=== PATIENT | female | born 1990 | race Caucasian/White ===

== ENCOUNTER 2018-01-31 21:00 | Inpatient (IN) | payer OTHER, SELFPAY ==
[2018-01-31 20:00] VITALS: BMI 37.1
[2018-01-31 20:57] LABS: ROM Internal Control Test YES-OK TO RESULT pt. (Internal QC)
[2018-01-31 20:59] LABS: ROM Patient Test POSITIVE (Negative)
[2018-01-31] MEDS: Lactated Ringers 1,000 ML 50 ML IV (21:30)
[2018-01-31 21:42] LABS: Hematocrit 37.6 % (37-47); Hemoglobin 12.8 g/dl (12.0-15.0); Mean Corpuscular Hgb 30.7 pg (27.0-32.0); Mean Corpuscular Volume 90.2 fL (81-99); Mean Platelet Vol. 11.2 fl (6.2-12.0); Platelet Count 191 K/mm3 (150-450); RBC Distribution Width CV 12.7 % (11.6-14.6); Red Blood Count 4.17 M/mm3 (4.2-5.4); Scan Indicated on CBC? Y/N NO; White Blood Count 13.4 K/mm3 (4.4-11.0)
[2018-01-31] MEDS: miSOPROStol 25 MCG TABLET PO (21:49)
[2018-02-01] MEDS: Acetaminophen 325 MG Tablet PO (00:16)
[2018-02-01] MEDS: Lactated Ringers 1,000 ML 50 ML IV ×2 (02:26→06:45)
[2018-02-01] MEDS: fentaNYL-bupivacaine (epidural) 100 ML BAG EPIDURAL (03:10)
[2018-02-01] MEDS: Oxytocin 30 units/NS 500 ml 30 UNITS/500 ML IV.SOLN IV (03:10)
[2018-02-01] MEDS: Ondansetron 4 MG/2 ML Vial IV (05:58)
--- NOTE | 2018-02-01 07:08 | PCM.HP.OB ---
- Problem List (1) Premature rupture of membranes Status: Acute History Date of Admission: 01/31/18 Final ANASTASIIA: 01/28/18 Final ANASTASIIA Source: LMP Gestational age: 40 Weeks and 4 Days History of this : This is a 27 year-old, G [1], P [0], at 40 weeks 3d gestational age by LMP. Presented to L&D with ROM for approximately 6 hours prior to hospital arrival. [place] a pop and small amount of fluid leakage. Throughout the day contractions began to increase in frequency every 5-8 minutes and intensity increased. Upon arrival ROM plus positive. Given Cytotec orally and progressed to 3-4 centimeters. Then started on Pitocin for active management. History of depression, depression during with counseling Rh negative Smoker, quit at beginning of . Surgical History: Surgical History (Last Updated 09/20/17 @ 09:21 by Christal Berg) History of tonsillectomy and adenoidectomy Z98.890 [facility] Allergy (Verified 01/31/18 20:33) Unknown shellfish derived Allergy (Verified 01/31/18 20:33) Swelling Home Medications: Home Medications acetaminophen 325 mg tablet 325 mg PO ONCE PRN 09/20/17 vitamin,calcium,awrasexi-prek-frhhz acid tablet 1 tab PO QDAY 09/20/17 Smoking Status: Former smoker Alcohol: None Number of Fetus(es): 1 Heart Tracin, moderate variability, accels, no decels, Category 1 FHT TOCO Analysis: q2-3 minutes, lasting 60-90 seconds, palpating moderate to strong. Pitocin at 1mu History Past Pregnancies: Past Pregnancies Delivery Date Name GA/Weeks Outcome Route Weight Gender Labor Length Anesthesia Delivery Location Provider FOB Labs: GBS negative Rubella Immune HBsAG negative HIV negative RPR negative O negative, antibody screen negative urine tox screen negative GC/CT negative Expected Delivery Method: Spontaneous Vaginal Describe any other labor & delivery plans:: Epidural for pain management Physical Exam General: Alert, Oriented x3, No apparent distress Cardiovascular: Regular rate, Regular Rhythm, No murmurs Lungs: Clear to auscultation, No rhonchi, No wheeze Extremities:: No edema Estimated gestational size: Appropriate for gestational size Presentation: Cephalic Cervix Dilation (cm): 8 Station: 0 Effacement (%): 90 Assessment/Plan All Active Problems Premature rupture of membranes (Acute) Sinusitis, acute (Acute) This is a 27 year-old, G [1], P [0], at 40 weeks gestational age. A:PROM Active Labor with Pitocin augmentation Category 1 FHT P: 1) Admit to L&D with routine orders 2) Epidural for pain management 3) Anticipate 4) for collaborative physician. Notified of patient status.
--- NOTE | 2018-02-01 07:19 | HP.PCM_ITS ---
- Problem List (1) Premature rupture of membranes Status: Acute History Date of Admission: 01/31/18 Final ANASTASIIA: 01/28/18 Final ANASTASIIA Source: LMP Gestational age: 40 Weeks and 4 Days History of this : This is a 27 year-old, G [1], P [0], at 40 weeks 3d gestational age by LMP. Presented to L&D with ROM for approximately 6 hours prior to hospital arrival. [place] a pop and small amount of fluid leakage. Throughout the day contractions began to increase in frequency every 5-8 minutes and intensity increased. Upon arrival ROM plus positive. Given Cytotec orally and progressed to 3-4 centimeters. Then started on Pitocin for active management. History of depression, depression during with counseling Rh negative Smoker, quit at beginning of . Surgical History: Surgical History (Last Updated 09/20/17 @ 09:21 by Christal Berg) History of tonsillectomy and adenoidectomy Z98.890 Allergies cefaclor [From [facility]] Allergy (Verified 01/31/18 20:33) Unknown shellfish derived Allergy (Verified 01/31/18 20:33) Swelling Home Medications: Home Medications acetaminophen 325 mg tablet 325 mg PO ONCE PRN 09/20/17 vitamin,calcium,npugodxr-canl-gorqi acid tablet 1 tab PO QDAY 09/20/17 Smoking Status: Former smoker Alcohol: None Number of Fetus(es): 1 Heart Tracin, moderate variability, accels, no decels, Category 1 FHT TOCO Analysis: q2-3 minutes, lasting 60-90 seconds, palpating moderate to strong. Pitocin at 1mu History Past Pregnancies: Past Pregnancies Delivery Date Name GA/Weeks Outcome Route Weight Gender Labor Length Anesthesia Delivery Location Provider FOB Labs: GBS negative Rubella Immune HBsAG negative HIV negative RPR negative O negative, antibody screen negative urine tox screen negative GC/CT negative Expected Delivery Method: Spontaneous Vaginal Describe any other labor & delivery plans:: Epidural for pain management Physical Exam General: Alert, Oriented x3, No apparent distress Cardiovascular: Regular rate, Regular Rhythm, No murmurs Lungs: Clear to auscultation, No rhonchi, No wheeze Extremities:: No edema Estimated gestational size: Appropriate for gestational size Presentation: Cephalic Cervix Dilation (cm): 8 Station: 0 Effacement (%): 90 Assessment/Plan All Active Problems Premature rupture of membranes (Acute) Sinusitis, acute (Acute) This is a 27 year-old, G [1], P [0], at 40 weeks gestational age. A:PROM Active Labor with Pitocin augmentation Category 1 FHT P: 1) Admit to L&D with routine orders 2) Epidural for pain management 3) Anticipate 4) for collaborative physician. Notified of patient status.
[2018-02-01] MEDS: Oxytocin 30 units/NS 500 ml 30 UNITS/500 ML IV.SOLN 334 UNITS IV (12:00)
--- NOTE | 2018-02-01 12:19 | PCM.OB.VAG ---
Vaginal Delivery Maternal Presentation: Spontaneous Rupture of Membranes Method of Induction: Pitocin Amniotic Membrane Rupture Type: Spontaneous at home Amniotic Fluid Description: Clear Final ANASTASIIA: 01/28/18 Gestational age: 40 Weeks and 4 Days Date of Procedure: 02/01/18 Pre-Operative Diagnosis: SROM Post-Operative Diagnosis: SROM Surgery/ Procedure Performed: Spontaneous Vaginal Delivery Type of Anesthesia: Epidural Description of Procedure: Patient prepped & draped when c/c/+2. She pushed & delivered head. Gentle traction placed on head to allow delivery of anterior & posterior shoulders. No excess traction placed on head. Body delivered & infant placed on maternal abdomen. 3VC clamped & cut after 1 minute delay. Placenta delivered with gentle traction. Good uterine tone obtained. Presentation: ABILIO Placental Delivery Description: Expressed Placenta Disposition: [facility] Cord Vessel Description: 3 Vessels Cord Entanglement: None Estimated Blood Loss: 250ml A gender: Female (1 minute): 8 (5 minute): 9 Episiotomy Description: None Laceration: 2nd degree - perineal - repaired with 3-0 vicryl Medications given after delivery: IV Pitocin Complications: None
[2018-02-01] MEDS: Oxytocin 30 units/NS 500 ml 30 UNITS/500 ML IV.SOLN 167 UNITS IV (12:30)
[2018-02-01] MEDS: 0.9% Saline Lock 10 ML Syringe IV (14:16)
[2018-02-01] MEDS: Ibuprofen 600 MG Tablet PO ×2 (15:38→22:41)
[2018-02-01 15:40] VITALS: BP 135/81; PULSE 110; RESP 18; TEMP 36.8
[2018-02-01 19:36] VITALS: BP 124/70; PULSE 114; RESP 16; TEMP 37.1
[2018-02-02] VITALS: BP 124/69; PULSE 103; RESP 16; TEMP 36.6
[2018-02-02] MEDS: Acetaminophen 500 MG Tablet 1000 MG PO ×3 (03:07→20:50)
[2018-02-02 04:15] VITALS: BP 123/65; PULSE 96; RESP 18; TEMP 36.4
[2018-02-02] MEDS: Ibuprofen 600 MG Tablet PO ×3 (08:22→23:00)
--- NOTE | 2018-02-02 08:40 | DCINST_ITS ---
Discharge Diet: No Restrictions Discharge Activity: Return to Normal Activity, May not drive while taking narcotic pain medications., May Shower May resume sexual activity in: 4-6 weeks Additional Activity Instructions:: Nothing in the vagina for 4-6 weeks. You may return to work/school in 6 weeks. Call your doctor if your incision/area has: Continuous Slow Oozing, Sudden Increased Bleeding, Increased Pain/ Swelling, Increased Redness, Foul Smelling Discharge Call your doctor if you observe: Fever of 101 or Higher, Inability to urinate, Inability to have a bowel movement, Using more than one pad per hour, Calf discomfort, Uncontrolled pain Additional Instructions: If you experience any of the following, contact your healthcare provider. * Bleeding that soaks a pad every hour for 2 hours * Fever 100.4 or higher * Unrelieved incision or abdominal pain * Swelling, redness, discharge or bleeding from your incision or episiotomy site * Your incision begins to separate * Problems urinating (including inability to urinate or burning while urinating) . * Visual changes * Severe headache * Flu-like symptoms * Pain or redness in one of both of your breasts * Pain, warmth, tenderness or swelling in your legs, especially the calf area * Frequent nausea and vomiting * Symptoms of depression or anxiety If you experience any of the following, call 911 or go to the nearest Emergency Room. * Chest pain * Problems breathing * Seizure activity * Partial or complete paralysis of a body part, slurred speech, weakness or drooping of the face, or a sudden inability to walk or hold your balance Allergies/Adverse Reactions: Allergies cefaclor [From Ceclor] Allergy (Verified 01/31/18 20:33) Unknown shellfish derived Allergy (Verified 01/31/18 20:33) Swelling Medications to take at Discharge acetaminophen 325 mg tablet 325 mg PO ONCE PRN 09/20/17 vitamin,calcium,mxlkhaae-zyki-jvnkx acid tablet 1 tab PO QDAY 09/20/17 When: Call to make an appointment with your doctor in 6 weeks. If you had elevated Blood Pressure or 4th degree laceration you will need to be seen in 2 weeks. Test Results: Test results from this visit will be discussed in further detail at your follow- up appointment, if applicable. Proposed Discharge Date: 02/03/18
--- NOTE | 2018-02-02 08:40 | PCM.PN.OB ---
Patient Problems: Active and Suspected Problems Premature rupture of membranes (Acute) Subjective: Patient sitting up in bed at this time. Patient denies any complaints or concerns at this time. Patient reports that baby is latching well with assistance of consultants. Patient denies difficulty with ambulation or urination. Reports bleeding is tapering down. Objective: Nipples without cracks or blisters, no erythema noted bilaterally Abdomen NT x 4 quadrants, FF midline 2FB below umbilicus +2/4 reflexes in LE, trace non-pitting edema in LE Perineum well approximated, small rubra lochia - Physical Exam General: Alert, Oriented x3, Cooperative HEENT: Atraumatic, Normocephalic Neck: Supple Lungs: Normal air movement Cardiovascular: Regular rate, No murmurs Abdomen: Soft, Non Tender Extremities: No edema, Capillary Refill Less than 3 Seconds Skin: No rashes, No breakdown Musculoskeletal: No Tenderness to Palpation of Joints or Extremities Neurological: Cranial nerves II-XII grossly intact, Deep Tendon Reflexes 2+/4 and Symmetrical Psych/Mental Status: Normal Affect, Appropriate Vital Signs Temp Pulse Resp BP 97.6 F L 96 18 123/65 H 02/02/18 04:15 02/02/18 04:15 02/02/18 04:15 02/02/18 04:15 Oxygen Delivery Method Room Air Weight: 203 lb 0.732 oz Body Mass Index (BMI) 37.1 Intake and Output for Last 24 Hours 01/31/18 02/01/18 02/02/18 23:59 23:59 23:59 Intake Total 2924 / 2924 Output Total 1800 / 1800 Balance 1124 / 1124 Medical Necessity - Tobacco Use Smoking Status: Former smoker Assessment/Plan All Active Problems Premature rupture of membranes (Acute) Sinusitis, acute (Acute) A: 27 y/o s/p of viable girl baby, PPD #1, Normal PP course P: 1) Continue present orders at this time, consultation visits today 2) Anticipate discharge to home tomorrow - will place Nexplanon tomorrow Nely PADGETT
[2018-02-02 08:42] VITALS: BP 131/79; PULSE 79; RESP 16; TEMP 36.3
[2018-02-02 12:06] VITALS: BP 122/63; PULSE 94; RESP 16; TEMP 36.5; O2SAT 98
--- NOTE | 2018-02-02 14:51 | CASEMGMT ---
Social Work Note Labor and Delivery Unit Consult for maternal history of marijuana use, depression, and anxiety. Chart reviewed. Presented to patient's room for assessment. Patient working on baby. Patient reports about to call nurse for assist to latching baby to other breast, so maybe for this bond underwriter to return a bit later. Plan: Try to meet with patient at a later time. -LUCAS Inman, HANDS ASSEMBLER
[2018-02-02 16:00] VITALS: BP 132/73; PULSE 90; RESP 18; TEMP 37.3
--- NOTE | 2018-02-02 16:33 | CASEMGMT ---
Social Work Assessment Labor and Delivery Unit Date of Referral: 02/01/2018 Time of Referral: 1509 Referred By: Dr. Boo Date of Intervention: 02/02/18 Time of Intervention: 1615 Reason for Referral: Maternal history of depression, anxiety, and marijuana use History obtained from: Medical record and patient/mother of baby (MOB) Faye Naik. Household composition: MOB, FOB, and the familys dog. Intend to take baby to this home. Patient's parent/guardian status: MOB reports she and FOB Herbie Naik have been for almost 2 years. MOB denies any form of abuse in relationship. Medical History: MBO is G1, P0 to 1 after delivering infant. care good, starting at 8 weeks gestation. Educational Status: MOB has some college education. No problem reading, writing, or with learning comprehension. Financial Status: MOB was working at a local [employer] but uncertain if will return there after discharge. HELEN works in [place] at [employer], first shift. Supplies: MOB reports to have needed supplies for baby including a bassinet, car seat, clothing, diapers, wipes, and plans to breast feed. Childcare/Caregiver(s): MOB plans to be off of work until July. Transportation: Reports to have reliable transportation. Programs/Agencies Involved: No agency involvement. MOB reports to feel to be over income for [employer]. MOB declines referral to [facility] [facility] did go [facility] one time during this , not currently attending. Behavioral Health Issues: MOB reports history of depression and anxiety prior to and then increase of symptoms of anxiety during . MOB reports has been on medication in the past but prefers medication at this point to be the last resort. MOB reports would prefer counseling over medication. MOB denies any history of suicidal ideation, plan, intent, or attempt. MOB reports to feel happy right now, on a scale of 1-10 with 10 being the happiest to be an 9 but in the last two weeks a 6 as MOB was anxious about delivering. MOB reports current anxiety is a 3 on the same scale with 1 being low anxiety and 10 being high anxiety. MOB reports did use marijuana in the past but stopped upon knowledge of . MOB reports also quit smoking tobacco. MOB reports social alcohol use outside of . Denies other illicit drug use. MOB with negative drug screen on 12-5-17. Infant meconium is pending. Family/Social Stressors: No reported stressors at this time. MOB does have history of depression and anxiety, not in current treatment though reports mood to be good at this time. MOB repots Vitamin D supplements have really helped MOBs mood. Support Systems: MOB reports to have both practical and emotional support from FOB, MOBs mother and sister. There are other family members around that are helpful as well. MOB reports FOB will be off for a week to help with transition home. And then the following week MOBs mom will be available. Depression/Shaken Baby/Safe Sleeping: MOB aware of safe sleeping and shaken baby. MOB educated to depression and anxiety, risk factors present, and importance of seeking out help and support if needed. ASSESSMENT: MOB pleasant, cooperative, friendly. MOB holding baby for entirety of social work visit. MOB stroking babys back, smiling at baby, and gazing at baby. MOB tearful at one point, when discussing that baby Iris is worth the cessation of smoking tobacco and marijuana. MOB reports to be happy to have the baby and to feel love and a connection. MOB reports to have adequate support at home, to have supplies, and intent to abstain from marijuana usage at this time. Educated MOB that smoking marijuana and is contraindicated, in case MOB does have a change of mind in the future. MOB reports if depression and anxiety symptoms arise would be willing to go to counseling and that the one visit MOB had at [facility] this as helpful. MOB accepting of [facility] resource packet, depression packet including online support resources, as well as local counselling options including [facility] program. MOB interested in the online support group for mothers. PLAN: MOB and baby to home when ready for discharge. Resources in place. Will monitor for meconium drug screen results but otherwise, no other services requested or indicated. -EULA Inman, POCKET CREASER
[2018-02-02 20:10] VITALS: BP 133/72; PULSE 78; RESP 18; TEMP 36.6; O2SAT 99
[2018-02-03 02:25] VITALS: BP 136/75; PULSE 83; RESP 18; TEMP 36.2
[2018-02-03 07:30] VITALS: BP 128/75; PULSE 85; RESP 16; TEMP 37.5
[2018-02-03] MEDS: Ibuprofen 600 MG Tablet PO (07:39)
[2018-02-03] MEDS: Senna/Docusate Sodium 1 Tablet PO (07:44)
[2018-02-03] MEDS: Etonogestrel 68 MG IMPLANT SQ (08:35)
--- NOTE | 2018-02-03 08:53 | PCM.PN.OB ---
Patient Problems: Active and Suspected Problems Premature rupture of membranes (Acute) Subjective: Patient sitting up in bed, reporting feelings of extreme tiredness and fatigue. Patient reports was up much of night and was fussy. Patient reports very supportive. Patient notes no physical complaints or issues, reports that bleeding continues to decrease. Denies issues with urination and ambulation. Desires discharge to home today Objective: Nipples without cracks or blisters Abdomen NT x 4 quadrants, FF midline 2FB below umbilicus +2/4 reflexes in LE, no edema noted Perineum well-approximated, scant rubra lochia - Physical Exam General: Alert, Oriented x3, Cooperative HEENT: Atraumatic, Normocephalic Neck: Supple Lungs: Normal air movement Cardiovascular: Regular rate, No murmurs Abdomen: Soft, Non Tender Extremities: No edema, Capillary Refill Less than 3 Seconds Skin: No rashes, No breakdown Musculoskeletal: No Tenderness to Palpation of Joints or Extremities Neurological: Cranial nerves II-XII grossly intact, Deep Tendon Reflexes 2+/4 and Symmetrical Psych/Mental Status: Normal Affect, Appropriate Vital Signs Temp Pulse Resp BP Pulse Ox 99.5 F H 85 16 128/75 H 99 02/03/18 07:30 02/03/18 07:30 02/03/18 07:30 02/03/18 07:30 02/02/18 20:10 Oxygen Delivery Method Room Air Weight: 203 lb 0.732 oz Body Mass Index (BMI) 37.1 Intake and Output for Last 24 Hours 02/01/18 02/02/18 02/03/18 23:59 23:59 23:59 Intake Total 2924 / 2924 Output Total 1800 / 1800 Balance 1124 / 1124 Medical Necessity - Tobacco Use Smoking Status: Former smoker Assessment/Plan All Active Problems Premature rupture of membranes (Acute) Sinusitis, acute (Acute) 27 y/o s/p , Normal PP Course, PPD #2 P: 1) Discharge to home pending discharge 2) Anticipatory PP health teaching done 3) RTC at 6 weeks to [facility] for f/u visit Nely PADGETT
== END 2018-02-03 11:20 | disposition home or self-care (01) | DRG 775 ==
LOC: WPOUT 21:07
PROVIDERS: Admitting Provider Obstetrics & Gynecology; Visit Provider Obstetrics & Gynecology
DX: O42.02 Full-term premature rupture of membranes, onset of labor within 24 hours of rupture (principal); Z3A.40 40 weeks gestation of pregnancy; Z37.0 Single live birth; O70.1 Second degree perineal laceration during delivery; O99.334 Smoking (tobacco) complicating childbirth
CPT/HCPCS: 59025; 59050; 84112; 85027; 86850; 86900; 99218; J7120; A4216; G0378; J2405

== ENCOUNTER 2018-02-05 10:50 | Outpatient (CLI) | payer OTHER, SELFPAY | END 2018-02-05 11:50 | disposition home or self-care (01) | LOC: WPOUT 10:53 → WP 10:54 | PROVIDERS: Visit Provider Obstetrics & Gynecology | DX: O92.79 Other disorders of lactation (principal) | CPT/HCPCS: 96152 ==

== ENCOUNTER 2018-02-11 14:05 | Outpatient (CLI) | payer OTHER, SELFPAY | END 2018-02-11 15:00 | disposition home or self-care (01) | LOC: WPOUT 14:10 → WP 14:11 | PROVIDERS: Visit Provider Obstetrics & Gynecology | DX: O92.79 Other disorders of lactation (principal) | CPT/HCPCS: 96152 ==

== ENCOUNTER → 2020-01-30 | Outpatient (CLI) | payer OTHER, SELFPAY ==
[2020-01-29 17:21] VITALS: BMI 25.7
== END | disposition home or self-care (01) ==
LOC: LABSPEC 01-31 13:54
PROVIDERS: Referring Provider Physician Assistant; Visit Provider Physician Assistant
DX: J02.9 Acute pharyngitis, unspecified (principal); J34.89 Other specified disorders of nose and nasal sinuses; Z20.828 Contact with and (suspected) exposure to other viral communicable diseases
CPT/HCPCS: 87635; G2023; U0003

== ENCOUNTER 2021-11-09 18:05 | Inpatient (IN) | payer BC, SELFPAY ==
[2021-11-09] VITALS (16 sets, daily range): BP systolic 126–143; BP diastolic 58–92; PULSE 72–86; RESP 16; TEMP 36.1–36.8; O2SAT 95–99; BMI 37.2
--- NOTE | 2021-11-09 16:08 | OB.TRI.NOTE ---
HPI - General General Date of Admission: 11/09/21 HPI Narrative MELANIE MAGUIRE, is a at 31 F who presents to triage with increased blood pressure at home, swelling and overall malaise. She denies headache, vision changes or RUQ pain. No history of preeclampsia or elevated pressures throughout the . She is scheduled for primary section this week for breech presentation. 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 varicosities Home Medications escitalopram oxalate 10 mg tablet 10 mg PO DAILY 09/20/19 [History Last Taken 11/08/21 21:00] buspirone 5 mg tablet 2 tab PO DAILY 01/29/20 [History Last Taken 11/08/21 21:00] clindamycin HCl 300 mg capsule 300 mg PO TID #30 cap 06/04/21 [Rx Last Taken Unknown] vit 64-yhta-npnsg-dha [ + DHA] 1 pkg PO DAILY 11/09/21 [History Last Taken 11/08/21 21:00] Allergy/AdvReac Type Severity Reaction Status Date / Time cefaclor [From [facility]] Allergy Unknown Verified 11/09/21 16:13 shellfish derived Allergy Swelling Verified 11/09/21 16:13 Surgical History History of tonsillectomy and adenoidectomy Social History Smoking Status: Former smoker alcohol intake: former History Elective abortions Hx Para 1 Spontaneous abortions Hx # Term Pregnancies Ectopic pregnancies Hx # Pregnancies Multiple births # of living children ROS Eyes Eyes: Denies blurry vision Cardiovascular Cardiovascular: Reports none; Denies chest pain at rest, chest pain with activity or dizziness Respiratory/Chest Respiratory/Chest: Denies cough or dyspnea Gastrointestinal Gastrointestinal: Reports none and other; Denies diarrhea or vomiting Genitourinary Genitourinary: Denies dysuria Musculoskeletal Musculoskeletal: Reports none Integumentary Integumentary: Reports none; Denies rash Neurologic Neurologic: Denies dizziness, headache(s) or other visual disturbances Psychiatric Psychiatric: Reports anxiety Physical Exam Const alert and no apparent distress General Appearance: cooperative Orientation / Consciousness: awake Exam Limitations: no limitations HEENT normocephalic Eyes General Eye: normal appearance of both eyes Neck full ROM Chest inspection of chest normal Resp normal respiratory effort and normal air movement Effort and Inspection: symmetric chest movement Auscultation: clear to auscultation bilaterally Cardio regular rate GI soft to palpation, non-tender and non-distended Inspection: and other Back/Spine normal ROM Extremity full ROM, normal capillary refill and no calf tenderness Skin no rashes or lesions noted Neuro oriented x3 and CN's II-XII intact bilaterally Psych mental status grossly normal NST FHR Rate Baby A Baseline: 130 Variability:: Moderate Accelerations:: 15 x 15 Decelerations:: None NST Reactive:: Yes FHR Category:: Category I Uterine Activity:: None noted Assessment & Plan (1) Multigravida in third trimester: (2) Addi breech: QUALIFIERS: Fetus number: single or unspecified fetus Qualified Code(s): O32.1XX0 - Maternal care for breech presentation, not applicable or unspecified (3) Elevated blood pressure reading: (4) History of anxiety: PLAN: PIH labs within normal ranges Blood pressures ranging from 132-143/ 84-92 which is elevated for patient +2 edema bilateral feet and +1 edema hands +2 Reflexes bilaterally with no clonus TAUS confirms breech presentation Dr. Cornejo notified and involved in plan of care- in route for evaluation
[2021-11-09 16:37] LABS: Hematocrit 34.7 % (37-47); Hemoglobin 12.1 g/dL (12.0-15.0); Mean Corp Hgb Conc 34.9 g/dL (32-36); Mean Corpuscular Hgb 32.2 pg (27.0-32.0); Mean Corpuscular Volume 92.3 fL (81-99); Mean Platelet Vol. 11.4 fl (6.2-12.0); Platelet Count 173 K/mm3 (150-450); RBC Distribution Width CV 13.2 % (11.6-14.6); RBC Distribution Width SD 44.3 fl (35.1-43.9); Red Blood Count 3.76 M/mm3 (4.2-5.4); White Blood Count 9.5 K/mm3 (4.4-11.0)
[2021-11-09 16:51] LABS: AST(SGOT) 13 U/L (15-37); Alanine Aminotransfer ALT/SGPT 10 U/L (13-56); Creatinine, Serum 0.65 mg/dL (0.55-1.02); EST Glomerular Filtration Rate 112 mL/min (>60); Est Glom Filt Rate - Afr Amer 136 mL/min (>60); Estimated Creatinine Clearance 101.83 ml/min; Protein, Urine (Random) 17.7 mg/dL (<11.9); Protein:Creat Ratio 209 mg/g CRE (0-200); Uric Acid 5.6 mg/dL (2.6-6.0)
[2021-11-09] MEDS: Lactated Ringers 1,000 ML 999 ML IV (18:25)
[2021-11-09] MEDS: Acetaminophen 500 MG Tablet 1000 MG PO (18:56)
[2021-11-09] MEDS: Lactated Ringers 1,000 ML 150 ML IV (19:26)
--- NOTE | 2021-11-09 19:39 | PCM.HP.OB ---
HPI - General General Date of Admission: 11/09/21 HPI Narrative MELANIE MAGUIRE, is a 31 F at 38.4 who presented to triage with increased blood pressures, swelling and overall malaise. She is scheduled for primary section this week for breech presentation. 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 varicosities Home Medications escitalopram oxalate 10 mg tablet 10 mg PO DAILY 09/20/19 [History Last Taken 11/08/21 21:00] buspirone 5 mg tablet 2 tab PO DAILY 01/29/20 [History Last Taken 11/08/21 21:00] clindamycin HCl 300 mg capsule 300 mg PO TID #30 cap 06/04/21 [Rx Last Taken Unknown] vit 49-[id number]-ocrcn-dha [ + DHA] 1 pkg PO DAILY 11/09/21 [History Last Taken 11/08/21 21:00] Allergy/AdvReac Type Severity Reaction Status Date / Time cefaclor [From [facility]] Allergy Unknown Verified 11/09/21 16:13 shellfish derived Allergy Swelling Verified 11/09/21 16:13 Surgical History History of tonsillectomy and adenoidectomy Social History Smoking Status: Former smoker alcohol intake: former History Elective abortions Hx Para 1 Spontaneous abortions Hx # Term Pregnancies Ectopic pregnancies Hx # Pregnancies Multiple births # of living children NST FHR Rate Baby A Baseline: 135 Variability:: Moderate Accelerations:: 15 x 15 Decelerations:: None NST Reactive:: Yes FHR Category:: Category I Uterine Activity:: None ROS Eyes Eyes: Denies blurry vision, change in vision or spots in vision ENT HEENT: Denies dizziness or headache(s) Cardiovascular Cardiovascular: Denies abdominal pain, chest pain or dyspnea Respiratory/Chest Respiratory/Chest: Denies cough, dyspnea, shortness of breath at rest or shortness of breath with exertion Gastrointestinal Gastrointestinal: Denies abdominal pain, diarrhea or vomiting Genitourinary Genitourinary: Denies change in urinary stream, difficulty urinating or dysuria Musculoskeletal Musculoskeletal: Reports none Integumentary Integumentary: Denies rash Neurologic Neurologic: Denies dizziness, headache(s), memory loss or weakness Psychiatric Psychiatric: Reports anxiety and depression Vital Signs Vital Signs Vital Signs: 11/09/21 16:19 11/09/21 16:34 11/09/21 16:50 Temperature 98.0 F Temperature Source Temporal Pulse Rate 81 81 81 Blood Pressure 143/92 H 140/91 H 140/92 H BP Systolic 143 140 140 BP Diastolic 92 91 92 Pulse Ox 11/09/21 17:06 11/09/21 17:21 11/09/21 17:35 Temperature Temperature Source Pulse Rate 82 73 78 Blood Pressure 133/84 H 134/87 H 142/80 H BP Systolic 133 134 142 BP Diastolic 84 87 80 Pulse Ox 11/09/21 17:50 11/09/21 18:44 Temperature 98.2 F Temperature Source Temporal Pulse Rate 78 Blood Pressure 142/89 H BP Systolic 142 BP Diastolic 89 Pulse Ox 98 Weight Weight: 210 lb 1.608 oz Body Mass Index (BMI) 37.2 Physical Exam Const alert, oriented x3 and no apparent distress General Appearance: cooperative Orientation / Consciousness: awake Exam Limitations: no limitations HEENT normocephalic Head and Scalp: normal to inspection Eyes General Eye: normal appearance of both eyes Neck full ROM and no lymphadenopathy Lymph Lymphatic: no lymphadenopathy noted Chest inspection of chest normal Resp normal respiratory effort, normal air movement and clear to auscultation bilaterally Effort and Inspection: able to speak in complete sentences and symmetric chest movement Cardio regular rate and regular rhythm GI normal to inspection, nondistended, normoactive bowel sounds Back/Spine normal ROM Extremity full ROM and no calf tenderness Skin no rashes or lesions noted General Skin Exam: no breakdown Neuro oriented x3 and CN's II-XII intact bilaterally Psych mental status grossly normal and thought process normal Labs Labs Labs: Blood Type O NEGATIVE Antibody Screen NEGATIVE Hct 34.7 % (37-47) L Hgb 12.1 g/dL (12.0-15.0) Rhogam given: No Assessment & Plan (1) Gestational hypertension: (2) Addi breech: QUALIFIERS: Fetus number: single or unspecified fetus Qualified Code(s): O32.1XX0 - Maternal care for breech presentation, not applicable or unspecified (3) 38 weeks gestation of : (4) Elevated blood pressure reading: (5) History of anxiety: PLAN: Elevated blood pressures 130-140's / 80-90's- elevated for patient +2 edema bilateral feet and hands +2 reflexes with no clonus PIH labs within normal range TAUS confirms breech presentation Decision made for primary section mary kay Cornejo Admit to labor and delivery Routine labs Ancef 2gm IV x 1 preop
[2021-11-09] MEDS: Sodium Citrate/Citric Acid 30 ML UDC PO (19:49)
[2021-11-09] MEDS: Cefazolin 2 GM in 0.9% Normal Saline 100 ML IV (20:04)
--- NOTE | 2021-11-09 21:10 | OP.PCM_ITS ---
Problems Associated Problem List Diagnoses (1) 38 weeks gestation of : (2) Gestational hypertension: (3) Breech presentation: Report of Operation Date of Procedure: 11/09/21 Pre-Operative Diagnosis: 38 week gestation, single IUP, gHTN, breech presentation Post-Operative Diagnosis: As above Surgery/Procedure Performed:: PTLCS via pfannenstiel incision Description of Surgical Findings:: VMI in complete breech presentation weighing 9 lb 14 oz. Apgars 8, 9. Large amount of fluid. Normal appearing uterus and bilateral adnexa. Normal appearing placenta with 3VC Surgeon: Theodora Cornejo video player mechanic: Kevin BYRD Type of Anesthesia: Spinal Special Medications: None Specimen's removed: Placenta Drains: Rodriguez Estimated Blood Loss (mL): 800 Fluids Replaced: 1000 Description of Procedure: Indications: Pt is a who presented to L&D at 38w4d with general malaise, worsened swelling, and elevated blood pressures at home over the last 2 days. Her blood pressures were persistently mild range on L&D with swelling present. Pre e labs were WNL. Recommended delivery for gHTN. Breech presentation confirmed on admission. Discussed r/b/a to a section and she desired to proceed. She declines an ECV. Patient was taken to the operating room where spinal anesthesia was found to be adequate. She was prepped and draped in the dorsal position with a leftward tilt. A Pfannenstiel skin incision was made with a scalpel and this was carried down to the underlying layer of fascia. The fascia was incised in the midline. The fascia was extended laterally using Meza scissors. The fascia was dissected off the rectus muscles using a combination of sharp and blunt dissection. The rectus muscles were in the midline. The peritoneum was entered bluntly with good visualization of the bladder. The peritoneal incision was extended bluntly. A bladder blade was inserted. A low transverse incision was made on the uterus with a scalpel. Membranes were ruptured for a large amount of clear fluid. The buttocks of the infant was delivered through the hysterotomy, followed by the legs and body, arms, and head without any force or delay and in usual fashion. The head was delivered in a flexed position. was delivered atraumatically and was noted to be vigorous upon delivery. Cord was clamped and cut after slight delay, and the was handed off to the waiting nursery staff. The placenta was removed with manual extraction. The uterus was cleared of all clot and debris. The uterus was exteriorized. The adnexa were noted to be normal-appearing. The hysterotomy was closed with 1 Vicryl in a 2 layer fashion. The first layer was a running locked layer, and the second layer was in an imbricating layer. Hemostasis was noted. There uterus was placed back into the abdomen. Arrista was placed over the hysterotomy. The peritoneum was closed with 3-0 Vicryl in running fashion. The rectus muscles were noted to be hemostatic. The fascia was closed with strata fix in running fashion. Subcutaneous space was irrigated and made hemostatic with the Bovie cautery. The subcutaneous space was reapproximated 3-0 Vicryl. The skin was closed with 4-0 Monocryl in subcuticular fashion. A dressing was placed. Instrument, sponge, needle counts were correct and the patient was taken recovery in stable condition. The pediatric physical therapy assistant helped with draping the patient, delivery of the , and closure. Grafts/Implants Used: None Procedure Start Time: 20:13 Procedure Stop Time: 21:02 Complications None Admit VTE Documentation VTE Present on Admission: No VTE Mechan Device Prophylaxis: SCD's
[2021-11-09] MEDS: Oxytocin 30 units/NS 500 ml 30 UNITS/500 ML IV.SOLN 167 UNITS IV (21:15)
[2021-11-09] MEDS: Ketorolac 30 MG/ML Syringe IV (21:50)
[2021-11-09] MEDS: busPIRone 5 MG Tablet 10 MG PO (23:05)
[2021-11-09] MEDS: Escitalopram Oxalate 10 MG Tablet PO (23:05)
[2021-11-10] VITALS (8 sets, daily range): BP systolic 110–157; BP diastolic 62–92; PULSE 79–90; RESP 15–20; TEMP 36.2–36.5; O2SAT 97–99
[2021-11-10] MEDS: Lactated Ringers 1,000 ML 100 ML IV (00:34)
[2021-11-10] MEDS: Acetaminophen 500 MG Tablet 1000 MG PO ×4 (01:20→19:43)
[2021-11-10] MEDS: Ketorolac 30 MG/ML Syringe IV ×3 (03:48→18:48)
[2021-11-10 05:49] LABS: Hematocrit 29.7 % (37-47); Hemoglobin 10.4 g/dL (12.0-15.0); Mean Corpuscular Hgb 32.7 pg (27.0-32.0); Mean Corpuscular Volume 93.4 fL (81-99); Mean Platelet Vol. 11.1 fl (6.2-12.0); Platelet Count 132 K/mm3 (150-450); RBC Distribution Width CV 13.1 % (11.6-14.6); RBC Distribution Width SD 44.7 fl (35.1-43.9); Red Blood Count 3.18 M/mm3 (4.2-5.4); White Blood Count 12.2 K/mm3 (4.4-11.0)
--- NOTE | 2021-11-10 08:53 | PCM.PN.OB ---
Subjective Subjective Doing well per patient and nursing staff. Ambulating and taking PO without difficulty. Rodriguez just removed, has not yet urinated. Passing flatus. Pain controlled. , services for assistance. Denies headache, visual changes, chest pain, shortness of breath, leg pain or increased bleeding. Lochia normal. Objective Data Objective Data Vital Signs: Vital Signs Temp Pulse Resp BP Pulse Ox 97.1 F L 79 16 114/67 99 11/10/21 08:00 11/10/21 08:00 11/10/21 08:00 11/10/21 08:00 11/10/21 08:00 Oxygen Delivery Method Room Air Weight: 210 lb 1.608 oz Body Mass Index (BMI) 37.2 Intake & Output: Intake and Output for Last 24 Hours 11/08/21 11/09/21 11/10/21 23:59 23:59 23:59 Intake Total 1377.5 / 1377.5 1293.33 / 1293.33 Output Total 300 / 300 500 / 500 Balance 1077.5 / 1077.5 793.33 / 793.33 Lab / Micro Data Result Diagrams: 11/10/21 05:40 11/09/21 16:25 Labs: Laboratory Results - last 24 hr 11/09/21 16:25: WBC 9.5, RBC 3.76 L, Hgb 12.1, Hct 34.7 L, MCV 92.3, MCH 32.2 H, MCHC 34.9, RDW Std Deviation 44.3 H, RDW Coeff of Yue 13.2, Plt Count 173, MPV 11.4 11/09/21 16:25: U Random Total Protein 17.7 H, Urine Creatinine 84.50, Protein/Creatinin Ratio 209 H 11/09/21 16:25: Creatinine 0.65, Estim Creat Clear Calc 101.83, Est GFR (MDRD) Af Amer 136, Est GFR (MDRD) Non-Af 112, Uric Acid 5.6, AST 13 L, ALT 10 L 11/09/21 16:25: Blood Type O NEGATIVE, Antibody Screen NEGATIVE 11/10/21 05:40: WBC 12.2 H, RBC 3.18 L, Hgb 10.4 L, Hct 29.7 L, MCV 93.4, MCH 32.7 H, MCHC 35.0, RDW Std Deviation 44.7 H, RDW Coeff of Yue 13.1, Plt Count 132 L, MPV 11.1 Micro: Microbiology 11/09/21 18:30 Nasal Secretion SARS-CoV-2 Antigen (Rapid) - Final ROS Constitutional Constitutional: Reports systems reviewed and no addt'l complaints, except as documented; Denies headache(s) Eyes Eyes: Denies acute decrease in peripheral vision, blurry vision or change in vision ENT HEENT: Reports systems reviewed and no addt'l complaints, except as documented Cardiovascular Cardiovascular: Denies chest pain or dizziness Respiratory/Chest Respiratory/Chest: Denies cough, dyspnea, dyspnea on exertion, shortness of breath at rest or shortness of breath with exertion Gastrointestinal Gastrointestinal: Denies abdominal pain, diarrhea, nausea or vomiting Genitourinary Genitourinary: Denies abdominal discomfort Musculoskeletal Musculoskeletal: Denies limited range of motion Integumentary Integumentary: Reports systems reviewed and no addt'l complaints, except as documented Neurologic Neurologic: Reports systems reviewed and no addt'l complaints, except as documented Psychiatric Psychiatric: Reports systems reviewed and no addt'l complaints, except as documented Endocrine Endocrinology: Reports systems reviewed and no addt'l complaints, except as documented Hematologic/Lymphatic Hematologic/Lymphatic: Reports systems reviewed and no addt'l complaints, except as documented Allergic/Immunologic Allergic/Immunologic: Reports systems reviewed and no addt'l complaints, except as documented Physical Exam Const alert and oriented x3 General Appearance: cooperative Orientation / Consciousness: awake, oriented to person, oriented to place and oriented to time Exam Limitations: no limitations HEENT normocephalic Head and Scalp: normal to inspection, normocephalic and atraumatic Face and Sinus: normal facial exam Eyes General Eye: normal appearance of both eyes Neck full ROM Chest Chest: symmetrical chest wall rise Resp normal respiratory effort and normal air movement Auscultation: clear to auscultation bilaterally Cardio regular rate, regular rhythm, S1 normal heart sound, S2 normal heart sound, no murmurs, no rub, no gallops and no clicks GI non-distended GI Narrative: Hypoactive bowel sounds. Dressing dry and intact Bladder / Kidney Exam: no CVA tenderness Back/Spine normal ROM Extremity normal to inspection and full ROM Skin no rashes or lesions noted Neuro oriented x3, CN's II-XII intact bilaterally and moves all extremities Sensorium / Orientation: awake, alert and oriented to person Motor Exam: clonus absent Deep Tendon Reflexes: Rt Patellar (L4): 2+ and Lt Patellar (L4): 2+ Assessment & Plan (1) Gestational hypertension: (2) S/P primary low transverse : PLAN: 1) BP elevated this am but normal at this time, will continue to monitor 2) Pain management 3) Rodriguez out 4) Ambulation 5) services 6) Hgb 12.1 to 10.4, asymptomatic 7) Discussed D/C home POD #3 due to GHTN
[2021-11-10] MEDS: Senna/Docusate Sodium 1 Tablet PO (09:54)
[2021-11-10] MEDS: 0.9% Saline Lock 10 ML Syringe IV ×2 (09:55→18:48)
--- NOTE | 2021-11-10 17:59 | NURSING ---
pt has been tearful this afternoon and now has been sleeping for a couple hours. Do not enter placed on pt door per 's request. Toradol held for the present time.
[2021-11-10] MEDS: busPIRone 5 MG Tablet 10 MG PO (22:24)
[2021-11-10] MEDS: oxyCODONE 5 MG Tablet PO (22:25)
[2021-11-10] MEDS: Escitalopram Oxalate 10 MG Tablet PO (22:25)
[2021-11-11] MEDS: Ibuprofen 600 MG Tablet PO ×4 (01:39→19:50)
[2021-11-11] MEDS: Acetaminophen 500 MG Tablet 1000 MG PO ×4 (01:40→19:51)
[2021-11-11 01:42] VITALS: BP 108/61; PULSE 88; RESP 16; TEMP 36.2; O2SAT 96
[2021-11-11] MEDS: Senna/Docusate Sodium 1 Tablet PO (07:50)
[2021-11-11 08:00] VITALS: BP 114/78; PULSE 97; RESP 20; TEMP 36.1
--- NOTE | 2021-11-11 08:12 | PCM.PROGNOTE ---
Subjective Subjective patient seen at bedside, doing well. Patient reports good pain control. lochia mild, passing flatus. denies DICKERSON, visual chages. Breast feeding well. Objective Data Objective Data Vital Signs: Vital Signs Temp Pulse Resp BP Pulse Ox 97.2 F L 88 16 108/61 96 11/11/21 01:42 11/11/21 01:42 11/11/21 01:42 11/11/21 01:42 11/11/21 01:42 Oxygen Delivery Method Room Air Weight: 95.3 kg Body Mass Index (BMI) 37.2 Intake & Output: Intake and Output for Last 24 Hours 11/09/21 11/10/21 11/11/21 23:59 23:59 23:59 Intake Total 1377.5 / 1377.5 1293.33 / 1293.33 Output Total 300 / 300 1200 / 1200 Balance 1077.5 / 1077.5 93.33 / 93.33 Lab / Micro Data Result Diagrams: 11/10/21 05:40 11/09/21 16:25 Micro: Microbiology 11/09/21 18:30 Nasal Secretion SARS-CoV-2 Antigen (Rapid) - Final Physical Exam Const alert and oriented x3 General Appearance: cooperative HEENT normocephalic Neck General: normal visual inspection GI soft to palpation and non-distended GI Narrative: Fundus firm Extremity normal to inspection and no calf tenderness Skin no rashes or lesions noted Neuro oriented x3 and CN's II-XII intact bilaterally Psych mental status grossly normal Assessment & Plan Assessment/Plan (1) S/P primary low transverse : (2) Gestational hypertension: QUALIFIERS: Trimester: third trimester Qualified Code(s): O13.3 - Gestational [-induced] hypertension without significant proteinuria, third trimester PLAN: POD# 2 , Doing well Routine care pain mgmt monitor VS- BP overall controlled ambulation consider dc home tomorrow
[2021-11-11] MEDS: oxyCODONE 5 MG Tablet PO ×3 (12:23→23:56)
[2021-11-11 14:17] VITALS: BP 120/87; PULSE 87; RESP 16; TEMP 36.8
--- NOTE | 2021-11-11 16:00 | CASEMGMT ---
Social Work Assessment Labor and Delivery Unit Patient Address: [address] [place] [address] [place] [address] Phone number: [phone] Date of Referral: 11.09.21 Time of Referral: 2258 Referred By: Dr. Cornejo Date of Intervention: 11.11.21 Time of Intervention: 1500 Reason for Referral: Maternal history of anxiety and depression History obtained from: Medical records including prior social work assessment, and mother of baby (MOB) Faye Naik; father of baby (FOB) Herbie Naik also present. Household composition: MOB, FOB, and older daughter Bridgette. No reported concerns with housing reported. Patient's parent/guardian status: URIEL is a 31 year old female, to the [facility] for about 7 years. Prior social work assessment, MOB denied any form of abuse, and upon nursing assessment this admission also denied any abuse concerns. MOB and FOB now have 2 children: Bridgette (born 02-01-2018) and baby boy, Ken Naik (born 11.09.2023). Medical History: URIEL is G2, P1 to 2 after delivering Ken. care started in first trimester and regular thereafter. Delivery via primary for breech presentation at 38 weeks. MOB reports had a scheduled surgery for 11.12.21 but delivered early due to blood pressure issues. Baby's apgars 8 and 9 at 1 and 5 minutes of life. Weighed over 9 pounds 14 ounces at . Baby was admitted into the [facility] due to respiratory and blood sugar issues. Educational Status: URIEL has some college education. No problem reading, writing, or with learning comprehension. 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 MOB reports to make own hours, works when wants to or needs to. 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 Infant Supplies: MOB reports to have needed supplies for baby including a bassinet, car seat, clothing, diapers, wipes, and plans to breast feed. Childcare/Caregiver(s): MOB will be primary caregiver, to have help from FO when home. Transportation: No issues, both parents drive. Programs/Agencies Involved: No agency involvement and no WIC. FOB reports to be over income. MOB reports to be active at [facility] with DAPHNEY Yen for medication management. Children Services/Legal Issues: None reported. Behavioral Health Issues: Mental Health History: MOB with history of depression an anxiety dating back to teen years. Per record, no thoughts of suicide since teen years. MOB reports depression and anxiety after Iris was born, and did get onto medication. Noted in record MOB with some anxiety during , fear of seeing other people vomit. Has been on meds throughout this and reports to feel this is working well overall. Plans to stay on this in the timeframe, but would like to add counseling. Prescribed Buspar and Lexapro. Substance Use History: Denies any current concerns or issues with alcohol or other substances. No endorsed use of marijuana. Maternal history of marijuana, prior to knowledge with Iris. Cessation of Vaping at beginning of this . Family History: father history of depression and anxiety. Drug Screens: Maternal drug screen negative on 04.08.21 Family/Social Stressors: Baby admitted to [facility] and delivery of baby via , a few days earlier than MOB had planned. Support Systems: MOB's parents who live in [place], and MOB's sister. FOB is a support. Depression/Shaken Baby/Safe Sleeping: MOB and FOB report to have watched shaken baby video in the SCN and are aware of safe sleeping. Reviewed mood and anxiety disorders, risk factors present, and that both moms and dads are at risk. Explored whether FOB experienced any type of PPD/PPA after Iris was born. FOB reports to be a chill person. MOB made comment that likely the FOB had a little bit due to MOB experiencing the PPD/PPA. Reinforced importance of self care and support for both. ASSESSMENT: Met with MOB and FOB together at baby's bedside in the SCN. MOB held the baby for duration of social work visit, was attentive and gentle. MOB was tearful a few times during the visit, and identifies that not really sure why crying. MOB talked about the delivery a few days early than expected, baby going into the SCN, and not getting much sleep at first. Discussed mood and anxiety, and having a baby in SCN as another risk factor for PPD/PPA. Discussed counseling, and MOB reports has been thinking of this as would like a female counselor to talk to, in addition to mediations. FOB reports had recently printed off a list of counselors taking Adali off the [employer] website for MOB. MOB reports her parents and sister are caring for Iris, so knows that the older child is in good hands and that family is a good support. MOB and FOB report to have necessary supplies to care for baby at home. Let MOB know that will follow back up with MOB to provide a packet of information on mood and anxiety disorders. Note, did educate MOB and FOB that this law writer is the social science instructor for [employer] and for continuity of care of families, also provides social work services to the [facility]. Emotional support, encouragement, and normalization provided to the MOB this date. PLAN: Social work to follow, and will follow with MOB again prior to discharge. -EULA Inman, RUBNIA *This note was generated with [employer] dictation software. It may contain incorrect words, spelling, and punctuation that were not noted in review of the chart prior to signing*
[2021-11-11 19:55] VITALS: BP 125/75; PULSE 83; RESP 18; TEMP 36.4; O2SAT 99
[2021-11-11] MEDS: Escitalopram Oxalate 10 MG Tablet PO (21:29)
[2021-11-11] MEDS: busPIRone 5 MG Tablet 10 MG PO (21:29)
[2021-11-12 01:46] VITALS: BP 121/76; PULSE 77; RESP 18; TEMP 36.6; O2SAT 96
[2021-11-12] MEDS: Acetaminophen 500 MG Tablet 1000 MG PO ×3 (01:52→14:58)
[2021-11-12] MEDS: Ibuprofen 600 MG Tablet PO ×3 (01:52→12:40)
[2021-11-12] MEDS: oxyCODONE 5 MG Tablet PO ×2 (05:32→12:43)
[2021-11-12 08:02] VITALS: BP 121/82; PULSE 84; RESP 16; TEMP 36.3; O2SAT 98
--- NOTE | 2021-11-12 10:00 | CASEMGMT ---
Social Work Labor and Delivery Unit Received notice that patient/mother of baby (MOB) and also the baby who is in SCN are likely being discharged today. Printed off list of counselors from [employer] Website who identify having experience with issues. Printed off the list and presented to MOB's room. FOB in room on couch and MOB in bed trying to rest. MOB tearful during social work visit, reports has been feeling overwhelmed. MOB shared that worried about plans has made for daughter to go do school tomorrow, and if discharged later this evening it may be a lot to have daughter go to school and jus be brining the baby home. daughter also has a runny nose, so MOB voicing worry about this and how could impact the baby. MOB expressed worry that others thinking that MOB may have been rude earlier today. This freelance copywriter assured MOB that no one is saying or thinking MOB has been rude, that MOB has been dealing with a lot of things in a short amount of time, and if feeling overwhelmed it is okay to speak up an say this. MOB expressed thanks. This freelance copywriter explored with FOB whether FOB is going to be able to take time off of work this week to help at home. MOB voiced that he's working right now. FOB reports is able to take half days this week if I want to. This freelance copywriter asked MOB if it would be helpful to have another set of hands at home going. MOB agreed. FOB voiced that can work remotely if needed. Provided MOB with the list from [employer] and encouraged to cross reference with the list that FOB had printed off earlier. This freelance copywriter updated that still needs to bring back the general packet on mood and anxiety that this freelance copywriter provided to moms and dads. Encouraged MOB tot rest before going to feed the baby again at 1100. Plan: MOB and baby anticipated to discharge today. Social work following. -EULA Inman, RUBINA
[2021-11-12] MEDS: Senna/Docusate Sodium 1 Tablet PO (10:25)
[2021-11-12 12:46] VITALS: BP 134/87; PULSE 84; RESP 14; TEMP 36.4; O2SAT 98
--- NOTE | 2021-11-12 12:46 | PCM.PN.OB ---
Subjective Subjective Pain well controlled. Average lochia. No nausea or vomiting. Excited because the baby should get to go home today and is doing well. Objective Data Objective Data Vital Signs: Vital Signs Temp Pulse Resp BP Pulse Ox 97.4 F L 84 16 121/82 H 98 11/12/21 08:02 11/12/21 08:02 11/12/21 08:02 11/12/21 08:02 11/12/21 08:02 Oxygen Delivery Method Room Air Weight: 95.3 kg Body Mass Index (BMI) 37.2 Intake & Output: Intake and Output for Last 24 Hours 11/10/21 11/11/21 11/12/21 23:59 23:59 23:59 Intake Total 1293.33 / 1293.33 Output Total 1200 / 1200 300 / 300 Balance 93.33 / 93.33 -300 / -300 Lab / Micro Data Result Diagrams: 11/10/21 05:40 11/09/21 16:25 Micro: Microbiology 11/09/21 18:30 Nasal Secretion SARS-CoV-2 Antigen (Rapid) - Final Physical Exam Const alert General Appearance: cooperative GI GI Narrative: soft, moderate distention, fundus firm, appropriately tender. Abdominal bandage clean dry and intact Assessment & Plan (1) S/P primary low transverse : PLAN: Postoperative day #3 status post primary section for breech presentation and spontaneous rupture membranes. Patient is doing well. And is ready for discharge home. Postop expectations and limitations reviewed. is breast-feeding and doing well. Anticipates discharge home today for as well.
--- NOTE | 2021-11-12 12:48 | DS.PCM_ITS ---
Providers Date of Admission: 11/09/21 Primary Care Physician: Geno Primary Care Phys Reason For Visit: LABOR AND DELIVERY Diagnosis Discharge Diagnosis (1) S/P primary low transverse : Status: Acute Code(s): Z98.891 - History of uterine scar from previous surgery Medications at Discharge Home Medications escitalopram oxalate 10 mg tablet 10 mg PO DAILY 09/20/19 buspirone 5 mg tablet 2 tab PO DAILY 01/29/20 + DHA 1 pkg PO DAILY 11/09/21 ibuprofen 600 mg PO Q6H PRN #60 tablet 11/12/21 oxycodone 5 mg PO Q6H PRN PRN 7 Days #12 tablet 11/12/21 Hospital Course Operations - (Primary low transverse section performed on 11/09/2021.) Procedures None Summary of Care Provided Hospital Course: 31-year-old multigravida female admitted at 38+ gestational weeks for spontaneous rupture membranes. Breech presentation of fetus. She underwent primary low-transverse section on 11/09/2021. On postoperative day 1 she had some mild acute blood loss anemia appropriate for blood loss during surgery. was in the special care nursery. Patient was working on breast-feeding. By postoperative day #3 she was ambulating, urinating tolerating regular diet without difficulty. She was discharged home with routine instructions and prescriptions. Weight / BMI Weight Weight: 95.3 kg Body Mass Index (BMI) 37.2 ABG / Lab / Microbiology Data Result Diagrams: 11/10/21 05:40 11/09/21 16:25 Microbiology: Microbiology 11/09/21 18:30 Nasal Secretion SARS-CoV-2 Antigen (Rapid) - Final D/C Instructions Discharge Diet: No restrictions May resume sexual activity in: 4-6 weeks Lifting Restrictions: 20 pounds Additional Activity Instructions: Nothing in the vagina for 4-6 weeks. You may return to work/school in 6 weeks. Call your doctor if your incision/area has: Continuous Slow Oozing, Sudden Increased Bleeding, Increased Pain/ Swelling, Increased Redness and Foul Smelling Discharge Call your doctor if you observe: Fever of 101 or Higher and Using more than 1 pa d per hour (for 2 hours) Suture Line Care: Avoid Pulling/Pushing and Avoid Pinching/Bending Cleanse incision/area with: Keep Dressing Clean & Dry Please Follow Up With: Eliana Moreno MD When: Call to make an appointment for an incision check in 1-2 [phone]. You will need a post check in 6 weeks. Meaningful Use Info Meaningful Use Diagnoses (Choose all that apply): None applicable Discharge Plan Admission Admit Date/Time: 11/09/21 18:05 Primary Reason for Your Visit: section for breech presentation Attending Provider: Theodora Cornejo Primary Care Provider: Care Physician,Geno Primary Discharge Orders/Prescriptions Prescriptions: New ibuprofen [ibuprofen] 600 MG tablet 600 mg PO Q6H PRN (Reason: Pain) Qty: 60 RF: 1 oxycodone 5 MG tablet 5 mg PO Q6H PRN PRN (Reason: severe pain) 7 Days Qty: 12 RF: 0 Continued escitalopram oxalate [Lexapro] 10 mg tablet 10 mg PO DAILY RF: 0 buspirone 5 mg tablet 2 tab PO DAILY RF: 0 + DHA 28 mg iron- 975 mcg-200 mg Combo Pack 1 pkg PO DAILY RF: 0 Discontinued clindamycin HCl 300 mg capsule 300 mg PO TID Qty: 30 RF: 0 Referrals / Follow Up: Care Physician,No Primary [Primary Care Provider] -
--- NOTE | 2021-11-12 15:55 | CASEMGMT ---
Social Work Labor and Delivery Presented to MOB room and provided packet on mood and anxiety disorders. MOB laying in bed, and FOB on couch. MOB appearing relaxed, and smiling. MOB reports to have things figured out with toddler at home, so feeling better. MOB denies any concerns with home going. FOB expressed thanks for elementary school social worker dropping information off. No further needs identified. Did speak with RN in the [facility], and FOB did participate in feeding baby a bottle today. Plan: MOB and baby to home with resources provided for homegoing. MOB does plan to remain on medication in the time frame. -LUCAS Inman, REGENERATION OPERATOR
[2021-11-12 16:10] VITALS: RESP 16
== END 2021-11-12 16:10 | disposition home or self-care (01) | DRG 788 ==
LOC: WPOUT 18:10 → WP 18:10
PROVIDERS: Advanced Practice Midwife; Admitting Provider Obstetrics & Gynecology; Visit Provider Obstetrics & Gynecology
DX: O32.1XX0 Maternal care for breech presentation, not applicable or unspecified (principal); O13.3 Gestational [pregnancy-induced] hypertension without significant proteinuria, third trimester; F41.9 Anxiety disorder, unspecified; O99.344 Other mental disorders complicating childbirth; Z3A.38 38 weeks gestation of pregnancy; Z37.0 Single live birth; Z87.891 Personal history of nicotine dependence; Z79.899 Other long term (current) drug therapy
CPT/HCPCS: 59025; 59050; 76815; 82565; 82570; 84156; 84450; 84460; 84550; 85027; 86850; 86900; 86901; 87426; 99218; 99406; J7120; A4216; G0378; J2405

== ENCOUNTER 2021-11-17 18:23 | Inpatient (IN) | payer BC, SELFPAY ==
[2021-11-17] VITALS (60 sets, daily range): BP systolic 123–155; BP diastolic 72–98; PULSE 68–95; RESP 16–18; TEMP 36.6–37.2; O2SAT 98–100; BMI 34.2
[2021-11-17 16:54] LABS: Hematocrit 35.3 % (37-47); Mean Corpuscular Volume 94.1 fL (81-99); Mean Platelet Vol. 10.6 fl (6.2-12.0); Platelet Count 291 K/mm3 (150-450); RBC Distribution Width CV 12.4 % (11.6-14.6); RBC Distribution Width SD 43.1 fl (35.1-43.9); Red Blood Count 3.75 M/mm3 (4.2-5.4); White Blood Count 8.2 K/mm3 (4.4-11.0)
[2021-11-17 17:21] LABS: AST(SGOT) 18 U/L (15-37); Alanine Aminotransfer ALT/SGPT 16 U/L (13-56); Creatinine, Serum 0.69 mg/dL (0.55-1.02); EST Glomerular Filtration Rate 105 mL/min (>60); Est Glom Filt Rate - Afr Amer 126 mL/min (>60); Estimated Creatinine Clearance 95.93 ml/min; Uric Acid 5.2 mg/dL (2.6-6.0)
[2021-11-17] MEDS: Ketorolac 30 MG/ML Syringe IV (17:26)
[2021-11-17] MEDS: Lactated Ringers 500 ML 999 ML IV (17:27)
[2021-11-17 17:29] LABS: Protein, Urine (Random) 15.6 mg/dL (<11.9); Protein:Creat Ratio 370 mg/g CRE (0-200)
[2021-11-17] MEDS: Magnesium Sulfate 4gm/100mL 4 GM/100 ML IV.SOLN. IV (18:26)
--- NOTE | 2021-11-17 18:26 | HP.PCM.OB_ITS ---
HPI - General HPI Narrative MELANIE MAGUIRE, is a 31 F who presents about 1 week s/p section for gHTN with DICKERSON, vision changes, and elevated BP's at home and in office. Otherwise doing well . 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 Home Medications escitalopram oxalate 10 mg tablet 10 mg PO DAILY 09/20/19 [History Last Taken 11/16/21 22:00] buspirone 5 mg tablet 2 tab PO DAILY 01/29/20 [History Last Taken 11/16/21 22:00] + DHA 1 pkg PO DAILY 11/09/21 [History Last Taken 11/16/21 22:00] ibuprofen 600 mg PO Q6H PRN #60 tablet 11/12/21 [Rx Last Taken 11/17/21 08:00] oxycodone 5 mg PO Q6H PRN PRN 7 Days #12 tablet 11/12/21 [Rx Last Taken 11/15/21 22:00] Allergy/AdvReac Type Severity Reaction Status Date / Time cefaclor [From [facility]] Allergy Unknown Verified 11/17/21 18:04 shellfish derived Allergy Swelling Verified 11/17/21 18:04 Surgical History History of tonsillectomy and adenoidectomy Social History Smoking Status: Former smoker alcohol intake: former History Elective abortions Hx Para 1 Spontaneous abortions Hx # Term Pregnancies Ectopic pregnancies Hx # Pregnancies Multiple births # of living children Vital Signs Vital Signs Vital Signs: 11/17/21 15:49 11/17/21 16:25 11/17/21 16:34 Pulse Rate 74 79 83 Blood Pressure 137/85 H 139/81 H 142/84 H BP Systolic 137 139 142 BP Diastolic 85 81 84 11/17/21 16:50 11/17/21 17:04 11/17/21 17:20 Pulse Rate 80 83 88 Blood Pressure 138/91 H 138/95 H 139/95 H BP Systolic 138 138 139 BP Diastolic 91 95 95 11/17/21 17:35 11/17/21 17:50 11/17/21 18:04 Pulse Rate 79 92 71 Blood Pressure 134/82 H 155/97 H 154/98 H BP Systolic 134 155 154 BP Diastolic 82 97 98 11/17/21 18:20 Pulse Rate 75 Blood Pressure 136/86 H BP Systolic 136 BP Diastolic 86 Weight Weight: 193 lb Body Mass Index (BMI) 34.2 Physical Exam Const alert and no apparent distress General Appearance: comfortable HEENT normocephalic Resp normal respiratory effort GI soft to palpation and non-distended Extremity Extremity Narrative: Patellar reflexes: hyper refexia noted Labs Labs Labs: Blood Type O NEGATIVE Antibody Screen NEGATIVE Hct 35.3 % (37-47) L Hgb 12.0 g/dL (12.0-15.0) Rhogam given: No Assessment & Plan (1) S/P primary low transverse : PLAN: Routine post op care. Pain medication ordered. (2) Gestational hypertension: QUALIFIERS: Trimester: third trimester Qualified Code(s): O13.3 - Gestational [-induced] hypertension without significant proteinuria, third trimester (3) Pre-eclampsia, : PLAN: Hyper reflexia noted, mild range BP's on L&D, and DICKERSON with visual changes that has not improved with OTC medication. Admit for PP mag. Ordered for 24 hours of mag gtt. Labs normal on admission. DICKERSON improved with Toradol. Fluid restrictions and strict intake and output ordered. Discussed may need BP medication. Ok for light breakfast if BP's stable.
[2021-11-17] MEDS: Lactated Ringers 1,000 ML 15 ML IV (18:40)
[2021-11-17] MEDS: Magnesium Sulfate 20 GM/500 ML BAG IV (18:58)
[2021-11-17] MEDS: busPIRone 5 MG Tablet 10 MG PO (22:02)
[2021-11-17] MEDS: Escitalopram Oxalate 10 MG Tablet PO (22:02)
[2021-11-18] VITALS (32 sets, daily range): BP systolic 114–154; BP diastolic 66–84; PULSE 18–90; RESP 16–18; TEMP 36.2–37.2; O2SAT 96–100
[2021-11-18] MEDS: Acetaminophen 325 MG Tablet 650 MG PO ×4 (02:07→22:11)
[2021-11-18] MEDS: Magnesium Sulfate 20 GM/500 ML BAG IV ×2 (04:33→14:00)
[2021-11-18] MEDS: Mag Hydrox/Al Hydrox/Simeth 30 ML UDC PO (04:50)
[2021-11-18] MEDS: Ibuprofen 600 MG Tablet PO ×3 (05:35→17:38)
[2021-11-18 06:25] LABS: Absolute Lymphocyte Count 2.28 X10^3/uL (0.83-4.51); Absolute Neutrophil Count 4.6 X10^3/uL (2.0-7.7); Basophil# 0.04 X10^3/uL; Basophil% 0.5 % (0-1); Eosinophil# 0.37 X10^3/uL; Eosinophils% 4.7 % (0-5); Hematocrit 34.6 % (37-47); Hemoglobin 11.7 g/dL (12.0-15.0); Lymphocyte # 2.28 X10^3/ul (0.83-4.51); Lymphocyte % 28.8 % (19-41); Mean Corp Hgb Conc 33.8 g/dL (32-36); Mean Corpuscular Hgb 31.5 pg (27.0-32.0); Mean Corpuscular Volume 93.3 fL (81-99); Mean Platelet Vol. 9.3 fl (6.2-12.0); Monocyte# 0.58 X10^3/uL; Monocyte% 7.3 % (0-10); NRBC Flagged by Analyzer 0 % (0-5); Neutrophil # 4.61 X10^3/uL (2.7-7.7); Neutrophil % 58.2 % (47-70); Platelet Count 276 K/mm3 (150-450); RBC Distribution Width CV 12.2 % (11.6-14.6); RBC Distribution Width SD 42.3 fl (35.1-43.9); Red Blood Count 3.71 M/mm3 (4.2-5.4); White Blood Count 7.9 K/mm3 (4.4-11.0)
[2021-11-18 06:56] LABS: ALB/GLOB Ratio 0.8 RATIO (0.9-2.4); AST(SGOT) 17 U/L (15-37); Alanine Aminotransfer ALT/SGPT 14 U/L (13-56); Albumin, Serum 2.9 g/dL (3.2-5.0); Alkaline Phosphatase 53 U/L (45-117); Anion Gap 7 (5-15); BUN 12 mg/dL (7-18); BUN/Creat Ratio 20.2 RATIO (10-20); Calcium,Total 7.4 mg/dL (8.5-10.1); Chloride 108 mmol/L (98-107); EST Glomerular Filtration Rate 124 mL/min (>60); Est Glom Filt Rate - Afr Amer 150 mL/min (>60); Estimated Creatinine Clearance 110.32 ml/min; Globulin 3.8 g/dL (2.2-4.2); Glucose 87 mg/dL (74-106); Potassium 3.4 mmol/L (3.5-5.1); Protein, Total 6.7 g/dL (6.4-8.2); Sodium Level 138 mmol/L (136-145)
[2021-11-18] MEDS: Prenatal Vits Tablet 1 TABLET PO (11:48)
--- NOTE | 2021-11-18 13:39 | PCM.PN.OB ---
Subjective Subjective Patient states headache is better. Also her RUQ pain resolved with antacid medication. Objective Data Objective Data Vital Signs: Vital Signs Temp Pulse Resp BP Pulse Ox 98.1 F 82 18 120/67 98 11/18/21 12:40 11/18/21 12:40 11/18/21 12:40 11/18/21 12:40 11/18/21 12:40 Oxygen Delivery Method Room Air Weight: 193 lb Body Mass Index (BMI) 34.2 Intake & Output: Intake and Output for Last 24 Hours 11/16/21 11/17/21 11/18/21 23:59 23:59 23:59 Intake Total 1140 / 1140 1998.75 / 1997.75 Output Total 850 / 850 1900 / 1900 Balance 290 / 290 98.75 / 98.75 Lab / Micro Data Result Diagrams: 11/18/21 06:17 11/18/21 06:17 Labs: Laboratory Results - last 24 hr 11/17/21 16:00: WBC 8.2, RBC 3.75 L, Hgb 12.0, Hct 35.3 L, MCV 94.1, MCH 32.0, MCHC 34.0, RDW Std Deviation 43.1, RDW Coeff of Yue 12.4, Plt Count 291, MPV 10.6 11/17/21 16:00: U Random Total Protein 15.6 H, Urine Creatinine 42.20, Protein/Creatinin Ratio 370 H 11/17/21 16:00: Creatinine 0.69, Estim Creat Clear Calc 95.93, Est GFR (MDRD) Af Amer 126, Est GFR (MDRD) Non-Af 105, Uric Acid 5.2, AST 18, ALT 16 11/18/21 06:17: Sodium 138, Potassium 3.4 L, Chloride 108 H, Carbon Dioxide 23.0, Anion Gap 7, BUN 12, Creatinine 0.60, Estim Creat Clear Calc 110.32, Est GFR (MDRD) Af Amer 150, Est GFR (MDRD) Non-Af 124, BUN/Creatinine Ratio 20.2 H, Glucose 87, Calcium 7.4 L, Total Bilirubin 0.40, AST 17, ALT 14, Alkaline Phosphatase 53, Total Protein 6.7, Albumin 2.9 L, Globulin 3.8, Albumin/Globulin Ratio 0.8 L 05/03/22 06:17: WBC 7.9, RBC 3.71 L, Hgb 11.7 L, Hct 34.6 L, MCV 93.3, MCH 31.5, MCHC 33.8, RDW Std Deviation 42.3, RDW Coeff of Yue 12.2, Plt Count 276, MPV 9.3, Immature Gran % (Auto) 0.500, Neut % (Auto) 58.2, Lymph % (Auto) 28.8, [place] % (Auto) 7.3, Eos % (Auto) 4.7, Baso % (Auto) 0.5, Absolute Neuts (auto) 4.6, Absolute Lymphs (auto) 2.28, Nucleated RBC % 0 Physical Exam Const alert, oriented x3 and no apparent distress HEENT normocephalic GI soft to palpation, non-tender and non-distended GI Narrative: fundus firm, mid & below umbilicus Incision - c/d/i Extremity normal to inspection and no calf tenderness Assessment & Plan (1) S/P primary low transverse : PLAN: Routine PP care (2) Pre-eclampsia, : COMMENT: HD#2 PLAN: Continue magnesium sulfate x24 hours BP's mostly normal with few mildly elevated & will monitor
[2021-11-18] MEDS: busPIRone 5 MG Tablet 10 MG PO (22:13)
[2021-11-18] MEDS: Labetalol 200 MG Tablet PO (22:14)
[2021-11-18] MEDS: Escitalopram Oxalate 10 MG Tablet PO (22:16)
[2021-11-19] MEDS: Ibuprofen 600 MG Tablet PO ×3 (00:12→12:36)
[2021-11-19 00:14] VITALS: BP 110/63; PULSE 77; RESP 20; TEMP 37.2; O2SAT 97
[2021-11-19] MEDS: Acetaminophen 325 MG Tablet 650 MG PO ×3 (04:11→16:54)
[2021-11-19 04:12] VITALS: BP 123/77; PULSE 77; RESP 18; TEMP 36.6; O2SAT 98
[2021-11-19] MEDS: Labetalol 200 MG Tablet PO ×2 (06:48→14:42)
--- NOTE | 2021-11-19 07:13 | NURSING ---
report given to Basilia Jackson RN who is assuming care of pt at this time
[2021-11-19 08:53] VITALS: BP 117/72; PULSE 91; RESP 17; TEMP 37.2; O2SAT 98
[2021-11-19 12:34] VITALS: BP 121/74; PULSE 76; RESP 17; TEMP 37.3; O2SAT 96
[2021-11-19] MEDS: Prenatal Vits Tablet 1 TABLET PO (12:37)
[2021-11-19 16:56] VITALS: BP 123/76; PULSE 84; RESP 15; TEMP 36.8; O2SAT 98
--- NOTE | 2021-11-19 17:24 | PCM.DC.SUM ---
Providers Date of Admission: 11/17/21 Primary Care Physician: Geno Primary Care Phys Reason For Visit: PRE ECLAMPSIA Diagnosis Discharge Diagnosis (1) S/P primary low transverse : Status: Acute Code(s): Z98.891 - History of uterine scar from previous surgery (2) Pre-eclampsia, : Status: Acute Code(s): O14.95 - Unspecified pre-eclampsia, complicating the puerperium Medications at Discharge Home Medications escitalopram oxalate 10 mg tablet 10 mg PO DAILY 09/20/19 buspirone 5 mg tablet 2 tab PO DAILY 01/29/20 + DHA 1 pkg PO DAILY 11/09/21 ibuprofen 600 mg PO Q6H PRN #60 tablet 11/12/21 labetalol 200 mg PO TID #90 tab 11/19/21 Weight / BMI Weight Weight: 193 lb Body Mass Index (BMI) 34.2 ABG / Lab / Microbiology Data Result Diagrams: 11/18/21 06:17 11/18/21 06:17 Meaningful Use Info Meaningful Use Diagnoses (Choose all that apply): None applicable Discharge Plan Admission Admit Date/Time: 11/17/21 18:23 Primary Reason for Your Visit: preeclampsia Attending Provider: Theodora Cornejo Primary Care Provider: Care Physician,Geno Primary Instructions Patient Instructions: Understanding Preeclampsia Additional Instructions / Restrictions: Take blood pressure daily. Please call if increasing 140/90 or higher Discharge Orders/Prescriptions Prescriptions: New labetalol 200 mg Tablet 200 mg PO TID Qty: 90 RF: 0 Continued escitalopram oxalate [Lexapro] 10 mg tablet 10 mg PO DAILY RF: 0 buspirone 5 mg tablet 2 tab PO DAILY RF: 0 + DHA 28 mg iron- 975 mcg-200 mg Combo Pack 1 pkg PO DAILY RF: 0 ibuprofen 600 MG tablet 600 mg PO Q6H PRN (Reason: Pain) Qty: 60 RF: 1 Discontinued oxycodone 5 MG tablet 5 mg PO Q6H PRN PRN (Reason: severe pain) 7 Days Qty: 12 RF: 0 Referrals / Follow Up: Theodora Cornejo DO [STAFF PHYSICIAN] - (Follow up 11/24/21 with physician in office. ) Care Physician,No Primary [Primary Care Provider] - Disposition Disposition (needs filled in before D/C Order can be placed): Home, Self Care
--- NOTE | 2021-11-19 17:28 | PCM.PN.OB ---
Subjective Subjective Sitting up in bed. Headache 5/10, same as prior to admission. Comes and goes. No scotoma or other symptoms. Objective Data Objective Data Vital Signs: Vital Signs Temp Pulse Resp BP Pulse Ox 98.2 F 84 15 123/76 H 98 11/19/21 16:56 11/19/21 16:56 11/19/21 16:56 11/19/21 16:56 11/19/21 16:56 Oxygen Delivery Method Room Air Weight: 193 lb Body Mass Index (BMI) 34.2 Intake & Output: Intake and Output for Last 24 Hours 11/17/21 11/18/21 11/19/21 23:59 23:59 23:59 Intake Total 1140 / 1140 2996.68 / 2996.68 Output Total 850 / 850 2450 / 2450 Balance 290 / 290 546.68 / 546.68 Lab / Micro Data Result Diagrams: 11/18/21 06:17 11/18/21 06:17 ROS Constitutional Constitutional: Reports systems reviewed and no addt'l complaints, except as documented; Denies headache(s) Eyes Eyes: Denies acute decrease in peripheral vision, blurry vision or change in vision ENT HEENT: Reports systems reviewed and no addt'l complaints, except as documented Cardiovascular Cardiovascular: Denies chest pain or dizziness Respiratory/Chest Respiratory/Chest: Denies cough, dyspnea, dyspnea on exertion, shortness of breath at rest or shortness of breath with exertion Gastrointestinal Gastrointestinal: Denies abdominal pain, diarrhea, nausea or vomiting Genitourinary Genitourinary: Denies abdominal discomfort Musculoskeletal Musculoskeletal: Denies limited range of motion Integumentary Integumentary: Reports systems reviewed and no addt'l complaints, except as documented Neurologic Neurologic: Reports systems reviewed and no addt'l complaints, except as documented Psychiatric Psychiatric: Reports systems reviewed and no addt'l complaints, except as documented Endocrine Endocrinology: Reports systems reviewed and no addt'l complaints, except as documented Hematologic/Lymphatic Hematologic/Lymphatic: Reports systems reviewed and no addt'l complaints, except as documented Allergic/Immunologic Allergic/Immunologic: Reports systems reviewed and no addt'l complaints, except as documented Physical Exam Const alert and oriented x3 General Appearance: cooperative Orientation / Consciousness: awake, oriented to person, oriented to place and oriented to time Exam Limitations: no limitations HEENT normocephalic Head and Scalp: normal to inspection, normocephalic and atraumatic Face and Sinus: normal facial exam Eyes General Eye: normal appearance of both eyes Neck full ROM Chest Chest: symmetrical chest wall rise Resp normal respiratory effort and normal air movement Auscultation: clear to auscultation bilaterally Cardio regular rate, regular rhythm, S1 normal heart sound, S2 normal heart sound, no murmurs, no rub, no gallops and no clicks GI normal to inspection, nondistended, normoactive bowel sounds and non-tender GI Narrative: incision healing, no erythema or drainage Bladder / Kidney Exam: no CVA tenderness Back/Spine normal ROM Extremity normal to inspection and full ROM Skin no rashes or lesions noted Neuro oriented x3, CN's II-XII intact bilaterally and moves all extremities Sensorium / Orientation: awake, alert and oriented to person Motor Exam: clonus absent Deep Tendon Reflexes: Rt Patellar (L4): 2+ and Lt Patellar (L4): 2+ Assessment & Plan (1) Pre-eclampsia, : COMMENT: HD#3 (2) S/P primary low transverse : PLAN: 1) S/P LTCS and preeclampsia 2) 24hr post magnesium at 1900 3) Labetalol 200mg PO BID. BP stable 4) Flexeril 5mg PO PRN for headache 5) D/C home. Follow up in 5 days 6) Consulted for discharge and agrees with plan
== END 2021-11-19 19:00 | disposition home or self-care (01) | DRG 776 ==
LOC: WPOUT 19:03 → WP 19:03
PROVIDERS: Advanced Practice Midwife; Admitting Provider Obstetrics & Gynecology; Visit Provider Obstetrics & Gynecology
DX: O14.95 Unspecified pre-eclampsia, complicating the puerperium (principal); F32.A Depression, unspecified; F41.9 Anxiety disorder, unspecified; O99.345 Other mental disorders complicating the puerperium; Z79.899 Other long term (current) drug therapy; Z87.891 Personal history of nicotine dependence; Z98.891 History of uterine scar from previous surgery
CPT/HCPCS: 36415; 80053; 82565; 82570; 84156; 84450; 84460; 84550; 85025; 85027; J7120